=== PATIENT | female | born 1975 | race Caucasian/White ===

== ENCOUNTER 2016-09-21 07:33 | Day surgery (SDC) | payer BC ==
[~2016-09-21] VITALS: Ht 157.5 cm; Wt 58.4 kg
[2016-09-21] MEDS ORDERED: EXCED PO (08:37)
[2016-09-21] MEDS ORDERED: PANT40TA3 PO (08:37)
[2016-09-21] MEDS ORDERED: PARO10TA26 PO (08:37)
[2016-09-21] MEDS ORDERED: RTPRO5 IH (08:37)
[2016-09-21 08:39] VITALS: Ht 157.5 cm; Wt 58.4 kg
[2016-09-21] MEDS ORDERED: PROPOFOL 40 ML ONE (08:45)
[2016-09-21] MEDS ORDERED: LIDOCAINE 100 MG SYRINGE ONE (08:45)
[2016-09-21 08:59] VITALS: BP 101/69; PULSE 77; RESP 12
[2016-09-21 09:32] VITALS: BP 104/71; RESP 20
--- NOTE | 2016-09-21 10:08 | GILP ---
DATE OF PROCEDURE: 09/21/2016 NAME OF PROCEDURE: Esophagogastroduodenoscopy and biopsy. SURGEON: Cora Alvarez MD PREOPERATIVE DIAGNOSIS: Gastroesophageal reflux disease. POSTOPERATIVE DIAGNOSES: 1. Gastroesophageal reflux disease. 2. Gastritis. 3. Gastric mucosal biopsies were taken for Helicobacter pylori test. INDICATION FOR THE PROCEDURE: Ms. Nikki Pfeiffer is a 41-year-old female patient who had chronic heartb urn not completely responding to therapy with Protonix. So the patient was scheduled for endoscopic examination for further evaluation. The procedure and possible complications were well explained to the patient. She understood and con sented to the procedure. DESCRIPTION OF PROCEDURE: Under the influence of anesthesia, the gastroscope was carefully introduc ed into the esophagus and under direct vision, it was advanced to the stomach and through the pyloru s into the duodenal bulb and descending duodenum. FINDINGS: ESOPHAGUS: The patient had gastroesophageal reflux disease, but the esophageal mucosa was normal. There was no stricture or neoplasm. STOMACH: The patient had gastritis. Gastric mucosal biopsies were taken for H. pylori test. DUODENUM: Normal. She tolerated the procedure very well and there was no complication from the procedure. At the end of the procedure, she was awake with stable vital signs and she was discharged home to the care of h family. IMPRESSION: 1. Gastroesophageal reflux disease. 2. Gastritis. 3. Gastric mucosal biopsies were taken for Helicobacter pylori test. PLAN: 1. Continue Protonix. 2. Add Zantac 150 mg p.o. at bedtime. 3. Await H. pylori test report. Dictated By: CORA ALVAREZ MD GD/CHAVEZ Conf#: [id number] DID#: [id number] CC: CORA ALVAREZ MD;*EndCC*
--- NOTE | 2016-09-22 11:30 | CONS ---
DATE OF ADMISSION: 09/21/2016 DATE OF CONSULTATION: TYPE OF CONSULTATION: Preoperative gastroenterology. Dear Dr. Max: I thank you very much for this kind referral. HISTORY OF PRESENT ILLNESS: Nikki Pfeiffer is a 41-year-old female patient who has been referred to me for further evaluation of chronic heartburn not completely responding to therapy with Protonix. Staci kirkland has also noticed cough and irritation in the throat. She also has occasional epigastric pain. There is no past history of peptic ulcer disease. There is no past history of peptic ulcer disease . The patient has been taking Excedrin for migraine. There is no history of gallstones. She does not have any fever, chills or jaundice. There is no history of liver disease. She is not a hyperte nsive or diabetic. She does not have any heart disease. She has history of bronchial asthma. Ther e is no history of kidney disease. She has got history of anxiety and she also takes Ativan occasio uday. SOCIAL HISTORY: She is a nonsmoker. She does not abuse alcohol. FAMILY HISTORY: Negative for gastrointestinal tract neoplasm. ALLERGIES: SHE STATES SHE IS ALLERGIC TO PENICILLIN. MEDICATIONS: 1. Protonix. 2. Paxil. 3. Albuterol p.r.n. 4. Excedrin. PHYSICAL EXAMINATION: VITAL SIGNS: She is 5 feet 1 inch tall and she weighs 115 pounds. HEART: Examination of the heart reveals normal first and second heart sounds. LUNGS: Clear. ABDOMEN: Soft without any distention. Liver and spleen are not palpable. There are no masses. Th ere is no focal tenderness. Normal bowel sounds are heard. CENTRAL NERVOUS SYSTEM: Does not reveal any focal neurological deficit. IMPRESSION: 1. Chronic heartburn, not responding to therapy with Protonix. 2. The patient also has got throat irritation and cough. 3. Occasionally epigastric pain. 4. Bronchial asthma. 5. Anxiety disorder. 6. The patient is on Paxil. 7. The patient also takes Ativan p.r.n. 8. Migraine. 9. The patient is on Excedrin. ALLERGIES: HISTORY OF ALLERGY TO PENICILLIN. PLAN: 1. Endoscopic examination for further evaluation. 2. Because of the anxiety disorder, she needs monitored anesthesia care. The procedure and possible complications are well explained to the patient. She understands and con sents to the procedure. I thank you once again. With warmest personal regards, CORA ALVAREZ MD Dictated By: CORA BAIRES/CHAVEZ Conf#: [id number] DID#: [id number]
== END 2016-09-21 11:14 | disposition home or self-care (01) ==
LOC: GIL 07:33
PROVIDERS: ATTEND Internal Medicine Gastroenterology
DX: K21.9 Gastro-esophageal reflux disease without esophagitis (principal); K29.70 Gastritis, unspecified, without bleeding; J45.909 Unspecified asthma, uncomplicated; F41.9 Anxiety disorder, unspecified
CPT/HCPCS: 43239; 87081; J2001

== ENCOUNTER 2017-01-13 18:12 | Emergency (ER) | payer BC ==
[~2017-01-13] VITALS: Ht 157.5 cm; Wt 59.5 kg
[~2017-01-13 18:12] MED LIST: EXCED PO; PANT40TA3 PO; PARO10TA26 PO; RTPRO5 IH
[2017-01-13 18:15] VITALS: Ht 157.5 cm; Wt 59.5 kg
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
[2017-01-13] MEDS ORDERED: ACETAMINOPHEN 500 MG TAB PO STA (20:45)
[2017-01-13] MEDS ORDERED: CYCLOBENZAPRINE 10 MG TAB PO ONE (21:00)
--- NOTE | 2017-01-13 21:18 | RADRPT ---
PROCEDURE: CT Head without. CLINICAL INDICATION: Headache. TECHNIQUE: The study was performed utilizing a multi-slice, multidetector CT scanner. Direct spira l 1 mm axial sections were obtained through the head without the use of intravenous contrast materia l. 1 or more of the following dose reduction techniques were utilized: Automated exposure control, adjustment of the mA and/or kV according to patient's size, iterative reconstruction technique. Co armand and sagittal reformations were obtained. The images were reviewed on a PACS workstation. RADIATION DOSE: CTDIvol: 41.7 mGyDLP: 630.2 mGy-cm COMPARISON: No prior studies are available for comparison. FINDINGS: There is motion artifact in the mid and lower cranial vault, slightly limiting evaluation at these l evels. There is no intracranial hemorrhage, extra-axial fluid collection, mass lesion, midline shif t or hydrocephalus. The ventricles, sulci and cisterns are within normal limits. The white matter is unremarkable. The dawkins-white matter differentiation is preserved. The basal cisterns are patent . The midline structures are intact. The orbits, calvarium and extracranial soft tissues are sharla l in appearance. The visualized paranasal sinuses, mastoid air cells and middle ear cavities are nor john aerated. IMPRESSION: 1. Mild motion artifact in the mid and lower cranial vault, slightly limiting evaluation. 2. No evidence of acute intracranial abnormality. No intracranial hemorrhage, extra-axial fluid co llection, mass lesion or hydrocephalous. RPTAT: HGAS .Ayden García MD, Date Time Electronically viewed and signed by .Ayden García MD, on 01/13/2017 21:18 .S/
--- NOTE | 2017-01-13 21:22 | RADRPT ---
PROCEDURE: CT Cervical Spine without contrast. CLINICAL INDICATION: 41-year-old female with cervical spine pain. TECHNIQUE: The study was performed on a multislice multidetector CT scanner. Spiral axial 1 mm im ages were obtained through the cervical spine and reformatted at 2.5 mm slice thickness without cont rast. 1 or more of the following dose reduction techniques were utilized: Automated exposure contr ol, adjustment of the mA and/or kV according to patient's size, iterative reconstruction technique. Coronal and sagittal reformations were obtained. The images were reviewed on a PACS workstation. RADIATION DOSE: CTDIvol: 22.2 mGyDLP: 494.0 mGy-cm COMPARISON: No prior studies are available for comparison. FINDINGS: There is diffuse straightening the cervical spine without reversal of normal cervical lordosis. The re are moderate degenerative changes of the atlanto-odontoid articulation with osteophyte inferior t o the anterior arch of C1. The vertebral body heights are maintained. There is no evidence of frac ture or dislocation. The marrow density is within normal limits. The intervertebral disc spaces pat ear normal. The cervical canal is unremarkable. There is a no bone destruction or sclerosis. The par aspinal soft tissues are unremarkable. No significant paraspinal soft tissue swelling. C2-3: The posterior margin of the disc, thecal sac and neural foramina are normal in appearance. C3-4: The posterior margin of the disc, thecal sac and neural foramina are normal in appearance. C4-5: The posterior margin of the disc, thecal sac and neural foramina are normal in appearance. C5-6: The posterior margin of the disc, thecal sac and neural foramina are normal in appearance. C6-7: The posterior margin of the disc, thecal sac and neural foramina are normal in appearance. C7-T1: The posterior margin of the disc, thecal sac and neural foramina are normal in appearance. IMPRESSION: 1. No acute abnormality of the cervical spine. No evidence of fracture or dislocation. 2. Straightening of the cervical spine which may be related paraspinal muscle spasm versus position ing. RPTAT: HGAS .Ayden García MD, Date Time Electronically viewed and signed by .Ayden García MD, on 01/13/2017 21:21 .S/
[2017-01-13] MEDS ORDERED: ACET500C5 PO (21:27)
[2017-01-13] MEDS ORDERED: CYCL-319 PO (21:27)
[2017-01-13 21:38] VITALS: BP 108/66; PULSE 82; RESP 18; TEMP 98.1
== END 2017-01-13 21:38 | disposition home or self-care (01) ==
LOC: FTE 18:12
DX: S06.0X0A Concussion without loss of consciousness, initial encounter (principal); S16.1XXA Strain of muscle, fascia and tendon at neck level, initial encounter; J45.909 Unspecified asthma, uncomplicated; Y04.8XXA Assault by other bodily force, initial encounter; Y92.009 Unspecified place in unspecified non-institutional (private) residence as the place of occurrence of the external cause
CPT/HCPCS: 70450; 72125

== ENCOUNTER → 2017-05-08 | Outpatient (CLI) | payer BC ==
[~2017-05-08] MED LIST changes: +ACET500C5 PO; +CYCL-319 PO
[2017-05-08 06:56] LABS: BASOPHIL # 0.1 10^3/ul (0.0-0.1); BASOPHILS % 0.7 % (0.0-2.0); EOSINOPHILS # 0.2 10^3/ul (0.0-0.5); HEMATOCRIT 35.2 % (37.0-47.0); HEMOGLOBIN 11.5 g/dl (12.0-16.0); LYMPHOCYTES # 2.6 10^3/ul (0.8-2.9); LYMPHOCYTES % 35.5 % (15.0-51.0); MEAN CORPUSCULAR HEMOGLOBIN 28.2 pg (29.0-33.0); MEAN CORPUSCULAR HGB CONC 32.7 g/dl (32.0-37.0); MEAN CORPUSCULAR VOLUME 86.3 fl (82.0-101.0); MEAN PLATELET VOLUME 10.1 fl (7.4-10.4); MONOCYTE # 0.7 10^3/ul (0.3-0.9); MONOCYTES % 9.3 % (0.0-11.0); NEUTROPHIL # 3.8 10^3/ul (1.6-7.5); NEUTROPHILS % 51.4 % (39.0-77.0); PLATELET COUNT 237 10^3/UL (140-415); RED BLOOD COUNT 4.08 10^6/ul (4.20-5.40); RED CELL DISTRIBUTION WIDTH 13.8 % (11.5-14.5); WHITE BLOOD COUNT 7.4 10^3/ul (4.8-10.8)
[2017-05-08 07:16] LABS: ALBUMIN/GLOBULIN RATIO 1.6; BILIRUBIN,INDIRECT 0.5 mg/dl (0-1.1); BILIRUBIN,TOTAL 0.5 mg/dl (0.2-1.3); CALCIUM 9.2 mg/dl (8.4-10.2); CHOL/HDL RATIO 3.2 RATIO; CREATININE 0.79 mg/dl (0.44-1.00); POTASSIUM 4.1 mmol/L (3.5-5.1); TOTAL PROTEIN 6.5 g/dl (6.1-8.1)
[2017-05-08 07:16] LABS: ADD UMIC YES; UR ASCORBIC ACID 40 mg/dL (NEGATIVE); UR BACTERIA FEW /HPF (NONE SEEN); UR BILIRUBIN (Dip) NEGATIVE (NEGATIVE); UR BLOOD (Dip) NEGATIVE (NEGATIVE); UR CLARITY CLOUDY (CLEAR); UR COLOR YELLOW (YELLOW); UR GLUCOSE (Dip) NEGATIVE (NEGATIVE); UR KETONES (Dip) TRACE mg/dL (NEGATIVE); UR LEUKOCYTE ESTERASE (Dip) NEGATIVE Leu/ul (NEGATIVE); UR MUCUS MANY /HPF (NONE SEEN); UR NITRITE (Dip) NEGATIVE (NEGATIVE); UR RBC 1 /HPF (0-5); UR SPECIFIC GRAVITY (Dip) 1.028 (1.003-1.030); UR SQUAMOUS EPITHELIAL CELL MODERATE /HPF (FEW); UR TOTAL PROTEIN (Dip) NEGATIVE (NEGATIVE); UR UROBILINOGEN (Dip) 1+ mg/dL (NEGATIVE)
== END | disposition home or self-care (01) ==
LOC: LAB 06:33
PROVIDERS: ATTEND Internal Medicine
DX: K85.90 Acute pancreatitis without necrosis or infection, unspecified (principal); R10.9 Unspecified abdominal pain
CPT/HCPCS: 80053; 80061; 81001; 82150; 83690; 85025

== ENCOUNTER → 2017-06-04 | Outpatient (CLI) | END | disposition home or self-care (01) ==

== ENCOUNTER → 2017-08-30 | Outpatient (CLI) | END | disposition home or self-care (01) ==

== ENCOUNTER → 2017-10-01 | Outpatient (CLI) | END | disposition home or self-care (01) ==

== ENCOUNTER → 2017-10-02 | Outpatient (CLI) | END | disposition home or self-care (01) ==

== ENCOUNTER → 2017-11-12 | Outpatient (CLI) | END | disposition home or self-care (01) ==

== ENCOUNTER → 2018-04-21 | Outpatient (CLI) | END | disposition home or self-care (01) ==

== ENCOUNTER → 2018-04-22 | Outpatient (CLI) | END | disposition home or self-care (01) ==

== ENCOUNTER → 2018-12-03 | Outpatient (CLI) | payer BC ==
[~2018-12-03] MED LIST changes: -CYCL-319 PO; +CYCL10TA7 PO; -PARO10TA26 PO; +PARO10TA57 PO
== END | disposition home or self-care (01) ==
LOC: C/S 12:51
PROVIDERS: ATTEND Otolaryngology Otolaryngology/Facial Plastic Surgery
DX: J32.0 Chronic maxillary sinusitis (principal)
CPT/HCPCS: 70486